=== PATIENT | male | born 1950 | race African-American/Black ===

== ENCOUNTER 2025-04-28 12:16 | Inpatient (IN) | payer OTHER, MEDICARE ==
[2025-04-28] VITALS (7 sets, daily range): BP systolic 115–136; BP diastolic 73–85; PULSE 82–97; RESP 16–34; TEMP 37; O2SAT 95–98
[~2025-04-28] VITALS: Ht 185.4 cm; Wt 104.8 kg
[2025-04-28] MEDS: MAGNESIUM 2 G PREMIX 50 ML IV ONE (12:31)
[2025-04-28] MEDS: METHYLPREDNISOLONE SOD SUCC 125MG/2ML (ACT-O-VIAL) IV STA (12:31)
[2025-04-28] MEDS: IPRATROPIUM BROMIDE (0.02%) 0.5MG/2.5ML NEB HHN STA (12:36)
[2025-04-28 12:45] LABS: HEMATOCRIT. 42.5 % (42.0-52.0); HEMOGLOBIN. 14.4 g/dL (14.0-18.0); MEAN CORPUSCULAR HEMOGLOBIN 28.4 pg (28.0-32.0); MEAN CORPUSCULAR HGB CONC 33.9 g/dL (31.0-37.0); MEAN CORPUSCULAR VOLUME 83.8 fL (80.0-94.0); MEAN PLATELET VOLUME 9.2 fl (7.4-10.4); PLATELET 151 x1000/uL (130-400); RED BLOOD CELL COUNT 5.07 mill/uL (4.7-6.1); RED CELL DISTRIBUTION WIDTH 14.5 % (11.6-14.6); WHITE BLOOD COUNT 3.4 x1000/uL (4.5-11.0)
[2025-04-28 12:53] LABS: DIFFERENTIAL COMMENT 1
[2025-04-28 12:55] LABS: CHLORIDE 93 mEq/L (98-107); POTASSIUM 3.4 mEq/L (3.5-5.1); SODIUM 136 mEq/L (136-145)
[2025-04-28 12:56] LABS: CARBON DIOXIDE 28 mEq/L (21-32)
[2025-04-28 13:01] LABS: CREATININE 1.3 mg/dL (0.6-1.3); GLUCOSE 177 mg/dL (70-105); INR 1.1; PARTIAL THROMBOPLASTIN TIME 26.4 sec (23.4-31.0); PROTHROMBIN TIME 11.7 sec (9.6-11.0); UREA NITROGEN BLOOD 14 mg/dL (9-23)
[2025-04-28 13:16] LABS: LACTIC ACID 6.3 mmol/L (0.4-2.0); TROPONIN I HIGH SENSITIVITY < 4 ng/L (3.0-53)
[2025-04-28] MEDS: ALBUTEROL (0.083%) 2.5MG/3ML NEB HHN SCH (13:18)
[2025-04-28 13:25] LABS: PLATELET ESTIMATE NORMAL
[2025-04-28 13:27] LABS: BG CARBOXYHEMOGLOBIN 0.8 % (0.5-1.5); BG DEOXYHEMOGLOBIN 0.1 % (0.0-5.0); BG FRACTION INSPIRED OXYGEN 100; BG HCO3 ACT 20.9 mmol/L (21.0-28.0); BG METHEMOGLOBIN 0.1 % (0.5-1.5); BG OXYGEN SATURATION 99.9 % (94.0-98.0); BG PCO2 27.8 mmHg (35.0-48.0); BG PH 7.494 (7.350-7.450); BG PO2 274.5 mmHg (83.0-108.0); BG SAMPLE SITE LEFT RADIAL; BG TOTAL HEMOGLOBIN 14.2 g/dL (13.5-17.5); BG TOTAL RESPIRATORY RATE 21 b/min; BG VENT MODE MASK - BIPAP
[2025-04-28] MEDS: CEFTRIAXONE 2GM/50ML 50 ML IV ONE (14:15)
[2025-04-28] MEDS: AZITHROMYCIN 500MG/250ML 250 ML IV SCH (14:38)
[2025-04-28] MEDS: SODIUM CHLORIDE 0.9% 1,000 ML IV ONE (14:38)
[2025-04-28] MEDS ORDERED: DOCUSATE SODIUM 100MG CAPSULE PO PRN (15:15)
[2025-04-28] MEDS ORDERED: ACETAMINOPHEN 325MG TABLET PO PRN ×2 (15:15)
[2025-04-28] MEDS ORDERED: IPRATROPIUM/ALBUTEROL 0.5-3(2.5)MG/3ML NEB HHN PRN (15:15)
[2025-04-28] MEDS ORDERED: ONDANSETRON HCL 4MG/2ML INJ IV PRN (15:15)
[2025-04-28] MEDS ORDERED: CLONIDINE 0.1MG TABLET PO PRN (15:15)
[2025-04-28] MEDS ORDERED: MAGNESIUM/ALUMINUM HYDROXIDE/SIMETHICONE 30ML UDC PO PRN (15:15)
[2025-04-28 15:20] LABS: ALANINE AMINOTRANSFERASE 56 IU/L (10-49); ALBUMIN 3.7 g/dL (3.2-4.8); ASPARTATE AMINOTRANSFERASE 102 IU/L (<34); BILIRUBIN DIRECT 4.4 mg/dL (<=3.0)
[2025-04-28] MEDS: DEXT 5%/0.9% NACL 1,000 ML IV ONE (15:47)
[2025-04-28 17:31] LABS: HEPATITIS B SURFACE ANTIGEN NEGATIVE (Negative)
[2025-04-28 17:52] LABS: HEPATITIS A AB IGM NEGATIVE (Negative)
[2025-04-28 17:53] LABS: HEPATITIS B CORE AB IGM NEGATIVE (Negative); HEPATITIS C AB NON REACTIVE (Neg) (Negative)
[2025-04-28] MEDS: METHYLPREDNISOLONE SOD SUCC 40MG/ML (ACT-O-VIAL) IV SCH (19:38)
[2025-04-28] MEDS: PIPERACILLIN/TAZO 3.375G/50ML 50 ML IV SCH ×2 (21:27)
[2025-04-28] MEDS: ENOXAPARIN 30MG/0.3ML SYR SUBCUT SCH (21:28)
[2025-04-28] MEDS ORDERED: IOHEXOL-350 100 ML BOTTLE ONE (23:08)
[2025-04-29] VITALS (12 sets, daily range): BP systolic 89–134; BP diastolic 59–81; PULSE 57–67; RESP 14–26; TEMP 36.6–37; O2SAT 94–99
[2025-04-29 00:34] LABS: CLARITY URINE CLEAR (CLEAR); COLOR URINE YELLOW (YELLOW); GLUCOSE URINE NEGATIVE (NEGATIVE); KETONES URINE NEGATIVE (NEGATIVE); LEUKOCYTE ESTERASE URINE NEGATIVE (NEGATIVE); NITRITE URINE NEGATIVE (NEGATIVE); OCCULT BLOOD URINE 1+ (NEGATIVE); PH URINE 6.5 (4.5-8.0); PROTEIN URINE NEGATIVE (NEGATIVE)
[2025-04-29 00:46] LABS: *AMPHETAMINES SCREEN URINE NEGATIVE (NEGATIVE)
[2025-04-29 00:47] LABS: *BARBITURATES SCREEN URINE NEGATIVE (NEGATIVE); *BENZODIAZEPINES SCREEN URINE NEGATIVE (NEGATIVE); *COCAINE SCREEN URINE NEGATIVE (NEGATIVE); CANNABINOID URINE SCREEN NEGATIVE (NEGATIVE); ECSTASY MDMA SCREEN URINE NEGATIVE (NEGATIVE); METHADONE URINE SCREEN NEGATIVE (NEGATIVE); OPIATES URINE SCREEN PRESUMPTIVE POSITIVE (NEGATIVE); PHENCYCLIDINE URINE SCREEN NEGATIVE (NEGATIVE)
[2025-04-29] MEDS: IPRATROPIUM/ALBUTEROL 0.5-3(2.5)MG/3ML NEB HHN SCH (02:26)
[2025-04-29 03:54] LABS: SQUAMOUS EPITHELIAL CELL URINE FEW /lpf (RARE/1+)
[2025-04-29 03:55] LABS: RBC URINE 0-2 /hpf (0-2); WBC URINE 0-2 /hpf (0-2)
[2025-04-29 03:56] LABS: BACTERIA URINE NONE SEEN
[2025-04-29 07:04] LABS: HEMATOCRIT. 37.2 % (42.0-52.0); HEMOGLOBIN. 12.4 g/dL (14.0-18.0); MEAN CORPUSCULAR HEMOGLOBIN 27.4 pg (28.0-32.0); MEAN CORPUSCULAR HGB CONC 33.3 g/dL (31.0-37.0); MEAN CORPUSCULAR VOLUME 82.5 fL (80.0-94.0); MEAN PLATELET VOLUME 9.3 fl (7.4-10.4); PLATELET 104 x1000/uL (130-400); RED BLOOD CELL COUNT 4.51 mill/uL (4.7-6.1); RED CELL DISTRIBUTION WIDTH 14.6 % (11.6-14.6); WHITE BLOOD COUNT 14.7 x1000/uL (4.5-11.0)
[2025-04-29 07:08] LABS: CHLORIDE 100 mEq/L (98-107); POTASSIUM 4.1 mEq/L (3.5-5.1); SODIUM 137 mEq/L (136-145)
[2025-04-29 07:11] LABS: CALCIUM 9.1 mg/dL (8.7-10.4); CARBON DIOXIDE 27 mEq/L (21-32)
[2025-04-29 07:16] LABS: CREATININE 1.2 mg/dL (0.6-1.3); DIFFERENTIAL COMMENT 1; GLUCOSE 296 mg/dL (70-105); TRIGLYCERIDE 88 mg/dL (0-150); UREA NITROGEN BLOOD 11 mg/dL (9-23)
[2025-04-29 07:17] LABS: ALBUMIN 3.4 g/dL (3.2-4.8); LDL CHOLESTEROL 30 mg/dL (5-100)
[2025-04-29 07:18] LABS: ALANINE AMINOTRANSFERASE 98 IU/L (10-49); ASPARTATE AMINOTRANSFERASE 193 IU/L (<34); BILIRUBIN TOTAL 5.5 mg/dL (0.1-1.0); CHOLESTEROL 78 mg/dL (<200); HDL CHOLESTEROL < 20 mg/dL (>55); PROTEIN TOTAL 6.6 g/dL (6.0-8.3); THYROID STIMULATING HORMONE 0.34 uIU/mL (0.55-4.78)
[2025-04-29] MEDS ORDERED: HYDRALAZINE 20MG/ML VIAL IV PRN (08:00)
[2025-04-29] MEDS: PANTOPRAZOLE SODIUM 40 MG/VIAL IV SCH (08:30)
[2025-04-29] MEDS: THIAMINE HCL 100MG TABLET PO SCH (08:31)
[2025-04-29 13:16] LABS: MICROCYTOSIS 1+; NUCLEATED RED BLOOD CELLS 1 /100 WBC; PLATELET ESTIMATE SLIGHTLY DECREASED
[2025-04-29] MEDS ORDERED: CEFTRIAXONE 1GM/50ML 50 ML IV SCH (16:00)
== END 2025-04-29 16:11 | disposition short-term general hospital (02) | DRG 871 ==
LOC: ER 12:59 → EDBEDREQTM 14:42 → EDBEDREQ 14:42 → 5EST 16:20
PROVIDERS: ADMIT Internal Medicine; ATTEND Internal Medicine
PROC: 5A09357 Assistance with Respiratory Ventilation, Less than 24 Consecutive Hours, Continuous Positive Airway Pressure (ICD-10-PCS; principal; 2025-04-28)
DX: A41.9 Sepsis, unspecified organism (principal); J18.9 Pneumonia, unspecified organism; J96.01 Acute respiratory failure with hypoxia; E87.20 Acidosis, unspecified; N17.9 Acute kidney failure, unspecified; N12 Tubulo-interstitial nephritis, not specified as acute or chronic; J98.11 Atelectasis; K80.00 Calculus of gallbladder with acute cholecystitis without obstruction; N13.8 Other obstructive and reflux uropathy; N39.0 Urinary tract infection, site not specified; E78.00 Pure hypercholesterolemia, unspecified; Z68.36 Body mass index [BMI] 36.0-36.9, adult; E66.9 Obesity, unspecified; K76.9 Liver disease, unspecified; N40.1 Benign prostatic hyperplasia with lower urinary tract symptoms; R33.8 Other retention of urine; M48.061 Spinal stenosis, lumbar region without neurogenic claudication; K75.9 Inflammatory liver disease, unspecified; I10 Essential (primary) hypertension; K76.0 Fatty (change of) liver, not elsewhere classified
CPT/HCPCS: 36415; 36600; 71045; 71275; 74174; 76705; 80048; 80053; 80061; 80076; 80305; 80307; 81003; 82375; 82805; 83036; 83605; 83880; 84145; 84153; 84439; 84443; 84484; 85025; 86705; 86709; 87070; 87077; 87186; 87340; 93005; 93970; 94070; 94640; 94660; 99291; J0456; J0696; J1650; J2470; J2543; J2919; J3475; J7030; Q9967